=== PATIENT | female | born 1990 | race Hispanic/Latino ===

== ENCOUNTER 2020-10-23 06:49 | Inpatient (IN) | payer MEDICAID ==
[2020-10-23] MEDS ORDERED: LACTATED RINGERS 1,000 ML ONE (07:21)
[2020-10-23] MEDS ORDERED: OXYTOCIN DRIP 30,000 MILLIUNITS/500 ML BAG IV ONE (07:39)
[2020-10-23] MEDS ORDERED: fentaNYL 100 MCG/2 ML INJ ONE (07:57)
[2020-10-23] MEDS ORDERED: fentaNYL 100 MCG/2 ML INJ IV PRN (07:58)
[2020-10-23] MEDS ORDERED: LACTATED RINGERS 1,000 ML IV SCH (08:00)
[2020-10-23] MEDS ORDERED: OXYTOCIN DRIP 30 UNITS/500 ML BAG IV SCH (08:00)
[2020-10-23] MEDS ORDERED: ACETAMINOPHEN 325 MG TAB PO PRN (08:01)
[2020-10-23] MEDS ORDERED: WITCH HAZEL/ GLYCERIN PAD TP PRN (08:01)
[2020-10-23] MEDS ORDERED: LANOLIN/ZINC/DIMETHICONE (LANSINOH) 7 GM TP PRN (08:01)
--- NOTE | 2020-10-23 08:04 | Procedure Note ---
OB Delivery Note - Delivery Date of Delivery: 10/23/20 Surgeon: CAROL SAEED Estimated blood loss: other (150 cc) - Vaginal Delivery presentation: breech Intrapartum events: labor-<37 weeks, precipitous labor- <3hr, other(please specify) (breech presentation) Delivery induction: none Delivery monitor: external FHT, external uterine Route of delivery: Delivery placenta: spontaneous Delivery cord: 3 umbilical vessels Episiotomy: none Delivery laceration: none Anesthesia: none Delivery comments: Asked to forest examiner for delivery as OB doctor was en route to hospital. Precipitous spontaneous vaginal delivery at 07:39 of liveborn male infant at 27 weeks, 3 days gestation by patient's self reported EDC of 01/19/2020. Patient came in complete with urge to push and with fetus derrick breech. NICU called to attend delivery and NICU team was present for . of baby was atraumatic; no nuchal cord. 3 vessel cord was double clamped and cut and baby was taken immediately to [facility] for resuscitation by NICU team. Weight and apgars not available yet; baby was taken to NICU right away. Cord blood obtained. Spontaneous delivery of intact placenta and membranes by antonio mechanism at 07:42. EBL 150 cc. Pitocin to IV fluids after delivery of placenta. Fundus firm and midline. No lacerations noted. Vaginal sweep negative.
--- NOTE | 2020-10-23 08:04 | History and Physical Report ---
History of Present Illness Date of examination: 10/23/20 Date of admission: 10/23/2020 Chief complaint: Contractions since 1:00 AM. History of present illness: 30 year old presented to L&D with complaint of contractions since 1:00 AM today. Patient denies LOF or vaginal bleeding. Patient states she receives care at [facility]; no records are available. Patient reports she is unsure of her LMP. She self reports an EDC of 01/19/2021 (based on US per pt. report). Patient denies any complications with this . lab panel was drawn upon admission. Was asked to chief reservoir engineering for delivery as patient came in completely dilated with urge to push and MD was en route to hospital. Past History Past Medical History: other (history of PIH with a previous (taking LDA), osteoarthritis) Past Surgical History: other (right wrist surgery) [employer] History: denies: abnormal PAP smear, chlamydia, gonorrhea, hepatitis B, hepatitis C, herpes, HIV, syphilis, trichomonas Family/Genetic History: hypertension Social history: single (lives with her female partner), full code. denies: s moking, alcohol abuse, prescription drug abuse, IV drug use - Obstetrical History Expected Date of Delivery: 01/19/21 Actual Gestation: 27 Week(s) 3 Day(s) : 2 Para: 1 Hx # Term Pregnancies: 1 Number of Pregnancies: 0 Spontaneous Abortions: 0 Induced : 0 Number of Living Children: 1 Medications and Allergies Allergies Allergy/AdvReac Type Severity Reaction Status Date / Time No Known Allergies Allergy Unverified 10/23/20 07:48 Active Meds: Active Medications Fentanyl (Sublimaze) 100 mcg IV Q2H PRN PRN Reason: Pain,Severe (7-10) LABOR PAIN Lactated Ringer's (Lactated Ringers) 1,000 mls @ 125 mls/hr IV DIRECT TEODORO Oxytocin/Sodium Chloride (Pitocin/Ns 30 Unit/500ml) 30 units in 500 mls @ 40 mls/hr IV TITR TEODORO; Protocol Mineral Oil (Mineral Oil) 30 ml PO QHS PRN PRN Reason: Constipation Review of Systems All systems: negative (contractions) - Vital Signs Vital signs: Vital Signs Temp Pulse Resp BP Pulse Ox 98.5 F 80 20 141/85 95 10/23/20 07:07 10/23/20 07:07 10/23/20 07:07 10/23/20 07:07 10/23/20 07:07 Temp Pulse Resp BP Pulse Ox 98.5 F 82 20 141/85 98 10/23/20 07:07 10/23/20 08:01 10/23/20 07:07 10/23/20 07:07 10/23/20 08:01 - Physical Exam Abdomen: Positive: normal appearance, soft. Negative: distention, tenderness, guarding, rigidity Genitourinary (Female): Positive: normal external genitalia, normal perenium. Negative: perineal/vulvar lesions Vagina: Positive: normal moisture Uterus: Positive: enlarged. Negative: tender Anus/Rectum: Positive: normal perianal skin Extremities: Positive: normal. Negative: tenderness - Obstetrical FHR: category 2 Uterine Contraction Monitor Mode: External Cervical Dilatation: 10 Cervical Effacement Percentage: 100 (derrick breech) station: +1 to +2 Uterine Contraction Pattern: Regular Uterine Contraction Intensity: Moderate Results All other labs normal. Assessment and Plan A: at 27 weeks, 3 days gestation. Advanced labor with breech presentation. GBS unknown. No records; walk-in patient. P: Admit. Draw panel and admission labs. Request records. NICU and Dr. Kennedy notified. OR opened. Asked to chief reservoir engineering for delivery as OB doctor was en route to hospital. NICU present or precipitous delivery with derrick breech presentation. MD notified and management decisions made by MD due to gestation.
[2020-10-23] MEDS: IBUPROFEN 600 MG TAB PO SCH ×2 (10:33→18:30)
[2020-10-23 11:05] LABS: Hematocrit 37.1 % (30.3-42.9); Hemoglobin 12.4 gm/dl (10.1-14.3); Mean Corpuscular HGB Conc 34 % (30-34); Mean Corpuscular Volume 91 fl (79-97); Platelet Count 267 K/mm3 (140-440); Red Cell Distribution Width 12.9 % (13.2-15.2)
[2020-10-23] MEDS: HYDROcodone/ACETAMINOPHEN 5-325 MG TAB PO PRN ×3 (11:31→23:00)
[2020-10-23 14:25] LABS: Hepatitis C Virus Antibody Nonreactive (NonReactive)
--- NOTE | 2020-10-23 16:52 | Event Note ---
Date: 10/23/20 Patient reports left flank pain and dysuria. Denies fever or chills or N/V. Elevated WBC. Rocephin IV ordered. Awaiting urine culture and blood culture results. Will repeat CBC in AM. Consulted with re: this patient.
[2020-10-23] MEDS ORDERED: cefTRIAXone/NS 1 GM/50 ML 1 GM/50 ML BAG IV SCH (17:00)
[2020-10-23 19:28] LABS: Hematocrit 37.7 % (30.3-42.9); Hemoglobin 12.5 gm/dl (10.1-14.3)
[2020-10-23 21:54] LABS: Bilirubin,Urine NEG (Negative); Blood,Urine LG (Negative); Color,Urine Yellow (Yellow); Mucus,Urine FEW /HPF; Urobilinogen,Urine < 2.0 mg/dL (<2.0)
[2020-10-23 21:56] LABS: RBC,Urine > 182.0 /HPF (0.0-6.0)
[2020-10-23] MEDS ORDERED: MAGNESIUM HYDROXIDE (MOM) ORAL LIQD UDC PO PRN (22:00)
[2020-10-23] MEDS ORDERED: MINERAL OIL 30 ML ORAL LIQD PO PRN (22:00)
[2020-10-23 22:02] LABS: Amphetamine Screen,Urine Negative; Benzodiazepines Screen,Urine Negative; Cocaine Screen,Urine Negative; Methadone Screen,Urine Negative; Opiate Screen,Urine Negative
[2020-10-23 22:14] LABS: Cannabinoid Screen,Urine Positive
[2020-10-24] MEDS: IBUPROFEN 600 MG TAB PO SCH ×3 (09:37→23:48)
--- NOTE | 2020-10-24 11:08 | Progress Note ---
Assessment and Plan A: PP Day #1 R/o UTI Elevated WBC P: Follow Routine Orders Repeat CBC Urine/Blood Cultures Pending Subjective - Subjective Date of service: 10/24/20 Patient reports: appetite normal, voiding normally (Denies Dysuria), pain well controlled, flatus, ambulating normally : in NICU, bottle feeding (and pumping breast) Objective - Vital Signs Latest vital signs: Vital Signs Temp Pulse Resp BP Pulse Ox 10/24/20 08:52 97.9 F 75 18 134/80 99 10/23/20 23:55 98.0 F 64 18 129/65 99 10/23/20 23:00 16 10/23/20 15:38 98.3 F 81 20 122/61 100 10/23/20 12:24 98.4 F 81 20 123/69 97 Intake and Output 10/23/20 10/24/20 10/24/20 22:59 06:59 14:59 Intake Total 240 500 Output Total 650 Balance -410 500 Intake: Oral 240 200 Intake, Free Water 300 Output: Urine 650 Void 650 Other: Total, Intake Amount 240 200 Total, Output Amount 650 # Voids Void 1 - Exam Breasts: Present: normal Cardiovascular: Present: Regular rate Lungs: Present: Clear to auscultation, Normal air movement, Other (No CVAT) Abdomen: Present: normal appearance, soft, normal bowel sounds Uterus: Present: normal, firm, fundal height below umbilicus Extremities: Present: normal - Labs Labs: Abnormal lab results 10/23/20 10/23/20 Range/Units 10:41 21:25 WBC 31.0 H (4.5-11.0) K/mm3 RDW 12.9 L (13.2-15.2) % Urine WBC (Auto) 70.0 H (0.0-6.0) /HPF
[2020-10-24 15:30] LABS: Basophils % (Auto) 0.2 % (0.0-1.8); Eosinophils # (Auto) 0.1 K/mm3 (0.0-0.4); Eosinophils % (Auto) 0.6 % (0.0-4.3); Hemoglobin 12.4 gm/dl (10.1-14.3); Lymphocytes # (Auto) 2.9 K/mm3 (1.2-5.4); Lymphocytes % (Auto) 15.7 % (13.4-35.0); Mean Corpuscular HGB Conc 33 % (30-34); Mean Corpuscular Volume 92 fl (79-97); Monocytes # (Auto) 0.9 K/mm3 (0.0-0.8); Monocytes % (Auto) 5.1 % (0.0-7.3); Platelet Count 294 K/mm3 (140-440); Red Blood Count 4.04 M/mm3 (3.65-5.03); Red Cell Distribution Width 12.9 % (13.2-15.2)
[2020-10-24] MEDS: HYDROcodone/ACETAMINOPHEN 5-325 MG TAB PO PRN (19:12)
[2020-10-25] MEDS: HYDROcodone/ACETAMINOPHEN 5-325 MG TAB PO PRN ×2 (05:47→10:43)
[2020-10-25 08:58] VITALS: BP 126/65
[2020-10-25] MEDS ORDERED: SULFAMETHOXAZOLE/TRIMETHOPRIM 800/160MG DS TAB PO SCH (10:00)
--- NOTE | 2020-10-25 10:23 | Discharge Summary ---
Providers - Providers Date of Admission: 10/23/20 07:00 Date of discharge: 10/25/20 Attending physician: HADLEY BURNETT 10/24/20 07:25 Consult to Case Management [CONS] Routine Services Needed at Discharge: Other Notified:: No Comment:: Positive for THC Additional Physician Instructions: Primary care physician: HADLEY BURNETT Hospitalization Reason for admission: labor Delivery: Episiotomy: none Laceration: none Other procedures: none complications: UTI Discharge diagnosis: delivery [place] baby: male (NICU) Hospital course: See admission H & P; OB delivery summary and PP progress notes Condition at discharge: Stable Disposition: RI-01 TO HOME OR SELFCARE - Discharge Diagnoses (1) Status post normal vaginal delivery Status: Acute (2) UTI (urinary tract infection) following delivery Status: Acute Plan - Discharge Medications Prescriptions: Sulfamethoxazole/Trimethoprim [Bactrim DS TAB] 1 each PO Q12HR 5 Days #10 tablet - Provider Discharge Summary Activity: routine, no sex for 6 weeks, no heavy lifting 4 weeks, no strenuous exercise Diet: routine Instructions: routine Additional instructions: [] Smoking cessation referral if applicable(refer to patient education folder for contact #) [] Refer to [facility]'s [facility] Booklet Call your doctor immediately for: * Fever > 100.5 * Heavy vaginal bleeding ( >1 pad per hour) * Severe persistent headache * Shortness of breath * Reddened, hot, painful area to leg or breast - Follow up plan Follow up: HADLEY BURNETT MD [Primary Care Provider] - 6 Weeks
== END 2020-10-25 16:30 | disposition home or self-care (01) | DRG 775 ==
LOC: TRG 06:49 → LD 06:49 → APU 06:50 → LD 07:00 → TRG 07:58 → OB 09:27
PROVIDERS: ADMIT Obstetrics & Gynecology; ATTEND Obstetrics & Gynecology
PROC: 10E0XZZ Delivery of Products of Conception, External Approach (ICD-10-PCS; principal; 2020-10-23)
DX: O60.12X0 Preterm labor second trimester with preterm delivery second trimester, not applicable or unspecified (principal); Z37.0 Single live birth; O32.1XX0 Maternal care for breech presentation, not applicable or unspecified; Z20.828 Contact with and (suspected) exposure to other viral communicable diseases; O62.3 Precipitate labor; O86.20 Urinary tract infection following delivery, unspecified; Z3A.27 27 weeks gestation of pregnancy; O75.89 Other specified complications of labor and delivery; M19.90 Unspecified osteoarthritis, unspecified site
CPT/HCPCS: 36415; 80307; 81001; 85014; 85018; 85025; 85027; 86592; 86706; 86762; 86803; 86850; 86900; 86901; 87040; 87086; 87806; 88305; 93005; G0378; A6250; J0696; J2590; J3010; U0003